=== PATIENT | male | born 1975 | race Caucasian/White ===

== ENCOUNTER 2020-10-20 20:12 | Emergency (ER) | payer BC ==
[~2020-10-20] VITALS: Ht 172.7 cm; Wt 111.1 kg
[2020-10-20 20:23] VITALS: BP_SYST 208
--- NOTE | 2020-10-20 20:27 | NUR ---
Patient to ER bed 02 to gown for evaluation. Side rails up.
--- NOTE | 2020-10-20 20:30 | NUR ---
Pt brought by self, A&Ox4, pt presents to ER with high blood pressure since yesterday, pt denies any chest pain ,fever or SOB, skin pink and warm, cap refill <3, VSS, respirations even and unlabored, speaking in full sentences, will cont to monitor.
--- NOTE | 2020-10-20 20:50 | NUR ---
Dr Arana evaluating patient at bedside
[2020-10-20 21:13] LABS: BASOPHILS % (AUTO) 0.4 % (0.0-2.0); EOSINOPHILS # (AUTO) 0.1 K/uL (0.0-0.4); EOSINOPHILS % (AUTO) 1.2 % (0.0-4.0); HEMOGLOBIN 15.6 g/dL (14.0-18.0); LYMPHOCYTES # (AUTO) 2.6 K/uL (1.0-5.5); LYMPHOCYTES % (AUTO) 34.5 % (20.5-51.5); MEAN CORPUSCULAR HEMOGLOBIN 31 pg (27-31); MEAN CORPUSCULAR HGB CONC 33 % (32-36); MEAN CORPUSCULAR VOLUME 93 fL (79.0-98.0); MONOCYTES # (AUTO) 0.9 K/uL (0.0-1.0); MONOCYTES % (AUTO) 11.3 % (1.7-9.3); NEUTROPHILS % (AUTO) 52.6 % (40.0-70.0); PLATELET COUNT (AUTO) 282 K/uL (130-430); RED BLOOD CELL COUNT(AUTO) 5.04 MIL/uL (4.2-6.2); RED CELL DISTRIBUTION WIDTH 13.6 % (9.0-15.0); WHITE BLOOD COUNT (AUTO) 7.6 K/uL (4.8-10.8)
[2020-10-20 21:23] LABS: CALCIUM 9.6 mg/dL (8.4-11.0); CREATININE 1.15 mg/dL (0.55-1.30); POTASSIUM 4.8 mmol/L (3.5-5.1)
[2020-10-20 21:29] LABS: ALBUMIN 4.2 g/dL (3.4-4.8); TOTAL BILIRUBIN 0.5 mg/dL (0.0-1.0)
--- NOTE | 2020-10-20 21:43 | NUR ---
received patient to Er w/ c/o elevated b/p noted in ER at 194/104. 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 Patient w/ no neuro focal deficits noted. Bed to low position sr up, continue to monitor. Introduced self to patient positioned for comfort and safety w/ bed to low position sr up.
[2020-10-20 22:37] LABS: BILIRUBIN,URINE NEGATIVE (NEGATIVE); CLARITY/URINE CLEAR (CLEAR); COLOR,URINE YELLOW (YELLOW); GLUCOSE,URINE NEGATIVE (NEGATIVE); KETONES,URINE NEGATIVE (NEGATIVE); LEUKOCYTE ESTERASE ,URINE NEGATIVE (NEGATIVE); NITRITE, URINE NEGATIVE (NEGATIVE); PROTEIN URINE NEGATIVE (NEGATIVE); UROBILINOGEN,URINE 0.2 (0.2-1.0)
[2020-10-20 22:41] LABS: BLOOD, URINE TRACE (NEGATIVE)
[2020-10-20] MEDS ORDERED: cloNIDine HCL 0.1 MG TABLET PO ONE (22:45)
[2020-10-20 22:48] LABS: BACTERIA,URINE RARE /HPF (None Seen); RBC,URINE 0-3 /HPF (0-3); WBC,URINE 0-3 /HPF (0-3)
[2020-10-20 22:49] LABS: MUCUS,URINE 1+ /LPF (None Seen)
--- NOTE | 2020-10-20 22:52 | NUR ---
patient medicated as ordered will observe for any adverse reaction and b/p. positioned for comfort, bed to low position sr up, continue to monitor.
[2020-10-20] MEDS ORDERED: hydrALAZINE HCL 20 MG/ML VIAL IVP ONE (23:30)
--- NOTE | 2020-10-20 23:30 | NUR ---
patient b/p noted at 178/98. No adverse reaction noted to medication, per MD Arana patient to received hydralazine ivp. Will observe patient for any adverse reaction and monitor patient b/p and neuro status. no neuro focal deficits noted.
[2020-10-21] MEDS ORDERED: cloNIDine HCL 0.1 MG TABLET PO ONE
--- NOTE | 2020-10-21 00:18 | NUR ---
patient medicated as ordered w/ clonidine 0.1mg po (hydralazine changed to clonidine), will observe patient for any adverse reaction. bed to low position sr up continue to monitor.
--- NOTE | 2020-10-21 00:50 | NUR ---
Patient given written and verbal discharge instructions and verbalizes understanding. ER MD discussed with patient the results and treatment provided. Patient in stable condition. ID arm band removed. Rx of given. Patient educated on pain management and to follow up with PMD. Pain Scale . Opportunity for questions provided and answered. Medication side effect fact sheet provided.
[2020-10-21 00:51] VITALS: BP_SYST 173
== END 2020-10-21 00:50 | disposition home or self-care (01) ==
LOC: SED 20:12
DX: F41.9 Anxiety disorder, unspecified (principal)
CPT/HCPCS: 36415; 71045; 80053; 81000-TC; 84484; 85025; 93005; 99285

== ENCOUNTER 2022-12-28 13:55 | Inpatient (IN) | payer BC ==
[~2022-12-28] VITALS: Ht 172.7 cm; Wt 113.4 kg
[2022-12-28 13:58] VITALS: BP_SYST 166
--- NOTE | 2022-12-28 14:03 | NUR ---
Patient to ER bed 5 to gown for evaluation. Side rails up.
--- NOTE | 2022-12-28 14:04 | NUR ---
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
--- NOTE | 2022-12-28 14:05 | NUR ---
ER at bedside examining patient.
[2022-12-28] MEDS ORDERED: KETOROLAC TROMETHAMINE 60 MG/2 ML VIAL IM ONE (14:30)
[2022-12-28] MEDS ORDERED: PANTOPRAZOLE SODIUM 40 MG TAB PO ONE (14:30)
[2022-12-28 14:44] LABS: BASOPHILS % (AUTO) 0.5 % (0.0-2.0); EOSINOPHILS # (AUTO) 0.1 K/uL (0.0-0.4); EOSINOPHILS % (AUTO) 0.9 % (0.0-4.0); HEMATOCRIT 42.7 % (36-54); HEMOGLOBIN 14.6 g/dL (14.0-18.0); LYMPHOCYTES % (AUTO) 27.5 % (20.5-51.5); MEAN CORPUSCULAR HEMOGLOBIN 31 pg (27-31); MEAN CORPUSCULAR HGB CONC 34 % (32-36); MEAN CORPUSCULAR VOLUME 91 fL (79.0-98.0); MONOCYTES # (AUTO) 0.6 K/uL (0.0-1.0); MONOCYTES % (AUTO) 8.5 % (1.7-9.3); NEUTROPHILS # (AUTO) 4.5 K/uL (1.8-7.7); NEUTROPHILS % (AUTO) 62.6 % (40.0-70.0); PLATELET COUNT (AUTO) 288 K/uL (130-430); RED BLOOD CELL COUNT(AUTO) 4.71 MIL/uL (4.2-6.2); RED CELL DISTRIBUTION WIDTH 13.6 % (9.0-15.0); WHITE BLOOD COUNT (AUTO) 7.2 K/uL (4.8-10.8)
[2022-12-28 15:02] LABS: ALANINE AMINOTRANSFERASE 59 U/L (12-78); ALBUMIN 3.9 g/dL (3.4-4.8); ANION GAP 8 (5-15); ASPARTATE AMINOTRANSFERASE 30 U/L (10-37); CHLORIDE 105 mmol/L (98-107); GLUCOSE 107 mg/dL (70-99); TOTAL BILIRUBIN 0.4 mg/dL (0.0-1.0); UREA NITROGEN, BLOOD 16 mg/dL (8-21)
[2022-12-28 15:03] LABS: GFR AFRICAN AMERICAN 102 mL/min (>90)
[2022-12-28] MEDS ORDERED: NITROGLYCERIN 0.4 MG TAB.SUBL SL ONE (15:15)
[2022-12-28] MEDS ORDERED: NITROGLYCERIN 1 INCH (GM) OINT. TP ONE (15:15)
[2022-12-28] MEDS ORDERED: ASPIRIN 325 MG TABLET (ECOTRIN) PO ONE (15:15)
[2022-12-28] MEDS ORDERED: ACETAMINOPHEN 325 MG TABLET PO ONE (15:15)
[2022-12-28] MEDS ORDERED: TRAZ-250 PO (16:10)
[2022-12-28] MEDS ORDERED: LISI40TA13 PO (16:10)
[2022-12-28] MEDS ORDERED: iohexoL 350 mgI/mL, 100 ML INFUS..BTL IV ONE (16:45)
--- NOTE | 2022-12-28 17:28 | NUR ---
Admit bed requested Patient will be admitted to care of . Admitted to TELE unit. Diagnosis CP Inpatient (Yes or No) Y Observation (Yes or No) N Orientation concerns or request close to nursing station (Yes or No) N Covid Status NEG On vent or bipap N Isolation requirements N Needs a sitter N From Home (Yes or if No enter name of facility) Y Requires Dialysis (Yes or No) N Med Rec Completed (Yes of No) Y
--- NOTE | 2022-12-28 17:29 | NUR ---
Patient transported to radiology via WC, accompanied by RAD STAFF.
[2022-12-28] MEDS ORDERED: ACETAMINOPHEN 325 MG TABLET ONE (19:28)
--- NOTE | 2022-12-28 19:40 | NUR ---
Patient will be admitted to care of Dr. Bridges. Admitted to Tele unit. Will go to room 116 bed A. Belongings list completed. Complete and up to date summary report printed. SBAR report given at bedside to NAHEED Castillo with opportunity for questions.
[2022-12-28 20:00] VITALS: BP_SYST 173
[2022-12-28 20:50] VITALS: BP_SYST 178
[2022-12-28] MEDS ORDERED: TEMAZEPAM 7.5 MG CAPSULE PO PRN (21:45)
[2022-12-29] VITALS: BP_SYST 161
[2022-12-29 04:00] VITALS: BP_SYST 151
--- NOTE | 2022-12-29 07:28 | NUR ---
OPENING NOTES RECEIVED SBAR FROM NIGHT RN. PATIENT IN BED, RESPIRATIONS EVEN, NON LABORED, BED IN LOW AND LOCKED POSITION, CALL LIGHT WITHIN REACH, PATIENT ABLE TO MAKE NEEDS KNOWN.
[2022-12-29 08:00] VITALS: BP_SYST 163
--- NOTE | 2022-12-29 09:17 | NUR ---
MD MARVIN VALENCIA SPOKE WITH BRI AT THE EXCHANGE REGARDING ELEVATED BP
[2022-12-29] MEDS ORDERED: hydrALAZINE HCL 20 MG/ML VIAL IVP PRN (10:00)
[2022-12-29] MEDS ORDERED: traZODone HCL 50 MG TABLET (DESYREL) PO PRN (10:00)
--- NOTE | 2022-12-29 10:05 | NUR ---
SPOKE WITH DR VALENCIA REGARDING BP HE WILL UPDATE MED RECON.
[2022-12-29] MEDS ORDERED: lisinopriL 20 MG TABLET PO ONE (10:45)
--- NOTE | 2022-12-29 10:55 | NUR ---
PER DR VALENCIA HOLD ON HYDRALAZINE ADMINISTRATION FOR NOW, RE CHECK BP IN 2 HOURS AND RE ASSESS
--- NOTE | 2022-12-29 10:55 | NUR ---
MD DR VALENCIA BEDSIDE EXAMINING PATIENT;
[2022-12-29] MEDS ORDERED: ALPRAZolam 0.25 MG TABLET PO ONE (11:00)
[2022-12-29 11:38] VITALS: BP_SYST 168
--- NOTE | 2022-12-29 13:19 | NUR ---
BP RE CHECKED BP 158/86 HOLD ON HYDRALAZINE
--- NOTE | 2022-12-29 13:25 | NUR ---
SHOWER ASSISTED PATIENT TO THE SHOWER.
--- NOTE | 2022-12-29 13:37 | NUR ---
NURSE NOTE PATIENT COMPLETED SHOWER AND AMBULATED TO BED. ATTACHED TELE MONITOR. PATIENT DENIES ANY PAIN OR DISCOMFORT
[2022-12-29 16:08] VITALS: BP_SYST 158
[2022-12-29 16:15] VITALS: BP_SYST 144
[2022-12-29] MEDS ORDERED: ALPR0.25 PO (16:28)
[2022-12-29] MEDS ORDERED: PANT20TA2 PO (16:32)
--- NOTE | 2022-12-29 17:05 | NUR ---
D/C Patient Patient given medication reconciliation form and D/C instructions. Exit Care provided. Patient verbalized understanding. MD discussed with patient the results and treatment provided. Ambulatory with steady gait for discharge to home. Patient in stable condition, ID band removed. IV catheter removed, intact and dressing applied, no active bleeding. Patient educated on pain management. All belongings sent with patient.Patient taken out by wheel chair to awaiting car.
[2022-12-30] MEDS ORDERED: lisinopriL 20 MG TABLET PO SCH (09:00)
[2022-12-30] MEDS ORDERED: APIX5TAB PO (15:28)
== END 2022-12-29 17:05 | disposition home or self-care (01) | DRG 392 ==
LOC: SED 13:55 → STU 15:53
PROVIDERS: ADMIT Internal Medicine; ATTEND Internal Medicine
DX: K21.9 Gastro-esophageal reflux disease without esophagitis (principal); I24.8 Other forms of acute ischemic heart disease; I10 Essential (primary) hypertension; E78.5 Hyperlipidemia, unspecified; F41.9 Anxiety disorder, unspecified; Z20.822 Contact with and (suspected) exposure to COVID-19
CPT/HCPCS: 36415; 71045; 71275; 76376; 80053; 83880; 84484; 85025; 93005; 93306; 99285; G0378; J0360; J1885; Q9967